=== PATIENT | female | born 1950 | race Caucasian/White ===

== ENCOUNTER → 2019-09-29 | Outpatient (CLI) | payer MEDICARE, BC ==
[~2019-09-29] MED LIST: FERROUS SU325 MG/TAB PO; NORVASC2.5 MG PO; PROAIR RES117 MCG/Ac IH; PROTONIX 40MG T40 MG PO; TYLENOL 325MG325 MG PO; VALTREX 50500 MG/TAB PO; VITAMIN C500 MG PO; VITAMIN D1000 IU PO; ZESTRIL 5MG5 MG PO
== END ==
LOC: MC.RAD 09:28
DX: Z12.31 Encounter for screening mammogram for malignant neoplasm of breast (principal); N64.89 Other specified disorders of breast

== ENCOUNTER → 2019-10-08 | Outpatient (CLI) | payer MEDICARE, BC | LOC: MC.RAD 13:57 | DX: N63.21 Unspecified lump in the left breast, upper outer quadrant (principal); N64.89 Other specified disorders of breast ==

== ENCOUNTER → 2020-05-14 | Outpatient (CLI) | payer MEDICARE, BC | LOC: MC.RAD 04-19 10:00 | DX: N63.20 Unspecified lump in the left breast, unspecified quadrant (principal) ==

== ENCOUNTER → 2023-07-26 | Outpatient (CLI) | payer MEDICARE, BC | LOC: MC.RAD 11:15 | DX: Z12.31 Encounter for screening mammogram for malignant neoplasm of breast (principal) ==